=== PATIENT | female | born 1955 | race Caucasian/White ===

== ENCOUNTER → 2023-07-21 08:42 | Outpatient (REF) | payer OTHER, SELFPAY ==
[2023-07-21 09:32] LABS: % Basophils 0.6 % (0-2); % Eosinophils 2.7 % (0-6); % Immature Granulocytes 0.6 % (0-0.5); % Lymphocytes 18.6 % (20.5-51.1); % Monocytes 9.9 % (1.7-9.3); % Neutrophils 67.6 % (42.2-75.2); Absolute Eosinophils 0.1 10^3/uL (0-0.7); Absolute Lymphocytes 0.6 10^3/uL (1.2-3.4); Absolute Monocytes 0.3 10^3/uL (0.1-0.6); Absolute Neutrophils 2.3 10^3/uL (1.4-6.5); Hematocrit 38.1 % (37.0-47.0); Hemoglobin 12.7 g/dL (12.0-16.0); Mean Corp Hgb Conc. 33.3 g/dL (33.0-37.0); Mean Corpuscular Hgb 30.9 pg (27.0-31.0); Mean Corpuscular Volume 92.7 fL (81.0-99.0); Mean Platelet Volume 9.2 fL (7.4-10.4); Nucleated Red Blood Cells % 0 %; Platelet Count 119 10^3/uL (130-400); Red Blood Cell Count 4.11 10^6/uL (4.20-5.40); Red Cell Dist. Width 12.9 % (11.5-14.5); White Blood Cell Count 3.3 10^3/uL (4.8-10.8)
[2023-07-21 09:40] LABS: INR 1.04; PT 13.4 Sec (11.4-14.6)
[2023-07-21 09:55] LABS: ALT (SGPT) 48 U/L (0-35); AST (SGOT) 66 U/L (14-36); Albumin 4.1 g/dl (3.5-5.0); Alkaline Phosphatase 157 U/L (38-126); Blood Urea Nitrogen 12 mg/dl (7-17); Calcium 8.5 mg/dl (8.4-10.2); Carbon Dioxide 25 mmol/L (22-30); Chloride 106 mmol/L (98-107); GGTP 185 U/L (12-43); Glucose 90 mg/dl (70-99); Sodium 136 mmol/L (135-145); Total Bilirubin 0.9 mg/dl (0.2-1.3); Total Protein 6.6 g/dl (6.3-8.2); eGFR > 60.00
[2023-07-21 10:29] LABS: AFP Male/Tumor Marker 6.65 ng/ml; Vitamin D, 25-OH*** 53.7 ng/mL (30-80)
[2023-07-24 21:02] LABS: Alpha-Tocopherol 12.2 mg/L (5.5-18.0); Gamma-Tocopherol <0.2 mg/L (0.0-6.0); Retinyl Palmitate <0.02 mg/L (0.00-0.10); Vitamin A (Retinol) 0.42 mg/L (0.30-1.20); Xitamin A Interpretation Normal
== END ==
LOC: REG 08:42
PROVIDERS: ATTENDING PHYSICIAN Internal Medicine Rheumatology; FAMILY PHYSICIAN Family Medicine; OTHER PHYSICIAN Internal Medicine Gastroenterology; REFERRING PHYSICIAN Internal Medicine Transplant Hepatology
DX: K74.69 Other cirrhosis of liver (principal)
CPT/HCPCS: 36415; 80053; 82105; 82306; 82977; 84446; 84590; 85025; 85610

== ENCOUNTER → 2023-09-11 09:06 | Outpatient (REF) | payer OTHER, SELFPAY | LOC: REG 09:06 | PROVIDERS: ATTENDING PHYSICIAN Internal Medicine Gastroenterology | DX: R19.7 Diarrhea, unspecified (principal) | CPT/HCPCS: 87045; 87046; 87324; 87328; 87329; 87427; 87449; 89055 ==

== ENCOUNTER → 2023-10-05 09:25 | Outpatient (REF) | payer OTHER, SELFPAY ==
[2023-10-05 11:28] LABS: Blood Urea Nitrogen 12 mg/dl (7-17)
== END ==
LOC: REG 09:25
PROVIDERS: ATTENDING PHYSICIAN Internal Medicine Gastroenterology
DX: R19.7 Diarrhea, unspecified (principal)
CPT/HCPCS: 36415; 82565; 84520

== ENCOUNTER 2023-11-07 06:41 | Day surgery (SDC) | payer OTHER, SELFPAY ==
[2023-10-25 08:10] VITALS: BMI 16.3
[2023-10-25 09:09] LABS: Hematocrit 38.2 % (37.0-47.0); Hemoglobin 12.6 g/dL (12.0-16.0); Mean Corpuscular Hgb 29.5 pg (27.0-31.0); Mean Corpuscular Volume 89.5 fL (81.0-99.0); Mean Platelet Volume 9.4 fL (7.4-10.4); Platelet Count 105 10^3/uL (130-400); Red Blood Cell Count 4.27 10^6/uL (4.20-5.40); Red Cell Dist. Width 13.1 % (11.5-14.5); White Blood Cell Count 3.7 10^3/uL (4.8-10.8)
[2023-10-25 09:10] LABS: ALT (SGPT) 37 U/L (0-35); AST (SGOT) 58 U/L (14-36); Albumin 4.2 g/dl (3.5-5.0); Alkaline Phosphatase 140 U/L (38-126); Blood Urea Nitrogen 11 mg/dl (7-17); Calcium 9.1 mg/dl (8.4-10.2); Carbon Dioxide 24 mmol/L (22-30); Chloride 106 mmol/L (98-107); Estimated Creatinine Clearance 62 ml/min; Glucose 99 mg/dl (70-99); Potassium 3.9 mmol/L (3.5-5.1); Sodium 140 mmol/L (135-145); Total Bilirubin 0.7 mg/dl (0.2-1.3); Total Cholesterol 233 mg/dl (50-199); Total Protein 6.8 g/dl (6.3-8.2); Triglyceride 57 mg/dl (10-149); Very Low Density Lipoprotein 11 mg/dl (0-30); eGFR > 60.00
[2023-10-25 09:26] LABS: HDL Cholesterol 143 mg/dl; LDL Cholesterol, Calculated 79 mg/dl
[2023-10-25 10:40] LABS: Vitamin B12 863 pg/ml (239-931)
[2023-10-25 10:41] LABS: Glycohemoglobin (HgbA1c) 5.8 % (4.0-5.6)
[2023-11-07] VITALS (11 sets, daily range): BP systolic 107–122; BP diastolic 63–78; BMI 16.3
[2023-11-07] MEDS: NORMOSOL-R 1000 IV (08:52)
[2023-11-07] MEDS: HEPARIN 5000 UNITS SC (08:52)
[2023-11-07] MEDS: Pyridium 200 MG PO (08:52)
[2023-11-07] MEDS: DILAUDID 0.25 MG IV ×2 (14:13→14:29)
[2023-11-07] MEDS: ZOFRAN 4 MG IV (14:59)
== END 2023-11-07 17:58 | disposition home or self-care (01) ==
LOC: SDS 06:41
PROVIDERS: ATTENDING PHYSICIAN Obstetrics & Gynecology; FAMILY PHYSICIAN Family Medicine; OTHER PHYSICIAN Internal Medicine Gastroenterology; OTHER PHYSICIAN Internal Medicine Transplant Hepatology
DX: N81.3 Complete uterovaginal prolapse (principal)
CPT/HCPCS: 57425; 58571; 88305; 36415; 80053; 80061; 82607; 83036; 85027; 86850; 86900; 86901; 93005; C1763

== ENCOUNTER → 2023-11-28 10:17 | Outpatient (REF) | payer OTHER, SELFPAY | LOC: REG 10:17 | PROVIDERS: ATTENDING PHYSICIAN Physician Assistant; FAMILY PHYSICIAN Family Medicine; OTHER PHYSICIAN Internal Medicine Transplant Hepatology; REFERRING PHYSICIAN Internal Medicine Gastroenterology | DX: K52.3 Indeterminate colitis (principal) | CPT/HCPCS: 87324; 87449 ==

== ENCOUNTER → 2024-01-26 09:10 | Outpatient (REF) | payer OTHER, SELFPAY ==
[2024-01-26 10:21] LABS: % Basophils 0.6 % (0-2); % Eosinophils 3.7 % (0-6); % Immature Granulocytes 0.3 % (0-0.5); % Lymphocytes 17.9 % (20.5-51.1); % Monocytes 9.1 % (1.7-9.3); % Neutrophils 68.4 % (42.2-75.2); Absolute Eosinophils 0.1 10^3/uL (0-0.7); Absolute Lymphocytes 0.6 10^3/uL (1.2-3.4); Absolute Monocytes 0.3 10^3/uL (0.1-0.6); Absolute Neutrophils 2.4 10^3/uL (1.4-6.5); Hematocrit 36.9 % (37.0-47.0); Hemoglobin 12.1 g/dL (12.0-16.0); Mean Corp Hgb Conc. 32.8 g/dL (33.0-37.0); Mean Corpuscular Hgb 29.4 pg (27.0-31.0); Mean Corpuscular Volume 89.6 fL (81.0-99.0); Mean Platelet Volume 9.2 fL (7.4-10.4); Nucleated Red Blood Cells % 0 %; Platelet Count 102 10^3/uL (130-400); Red Blood Cell Count 4.12 10^6/uL (4.20-5.40); Red Cell Dist. Width 13.2 % (11.5-14.5); White Blood Cell Count 3.5 10^3/uL (4.8-10.8)
[2024-01-26 10:51] LABS: ALT (SGPT) 38 U/L (0-35); AST (SGOT) 54 U/L (14-36); Albumin 4.2 g/dl (3.5-5.0); Alkaline Phosphatase 142 U/L (38-126); Blood Urea Nitrogen 12 mg/dl (7-17); Calcium 9.1 mg/dl (8.4-10.2); Carbon Dioxide 25 mmol/L (22-30); Chloride 105 mmol/L (98-107); GGTP 187 U/L (12-43); Glucose 92 mg/dl (70-99); Potassium 4.2 mmol/L (3.5-5.1); Sodium 137 mmol/L (135-145); Total Bilirubin 0.9 mg/dl (0.2-1.3); Total Protein 6.4 g/dl (6.3-8.2); eGFR > 60.00
[2024-01-26 11:06] LABS: INR 0.98; PT 12.7 Sec (11.4-14.6)
[2024-01-26 11:22] LABS: AFP Male/Tumor Marker 6.12 ng/ml
== END ==
LOC: REG 09:10
PROVIDERS: ATTENDING PHYSICIAN Internal Medicine Rheumatology; FAMILY PHYSICIAN Family Medicine; OTHER PHYSICIAN Internal Medicine Gastroenterology; OTHER PHYSICIAN Internal Medicine Transplant Hepatology
DX: M81.0 Age-related osteoporosis without current pathological fracture (principal); Z79.899 Other long term (current) drug therapy; K74.3 Primary biliary cirrhosis
CPT/HCPCS: 36415; 80053; 82105; 82977; 85025; 85610

== ENCOUNTER → 2024-02-22 06:33 | Day surgery (SDC) | payer OTHER, SELFPAY | LOC: GI 06:33 | PROVIDERS: ATTENDING PHYSICIAN Internal Medicine Gastroenterology | DX: Z12.11 Encounter for screening for malignant neoplasm of colon (principal); Z86.010 Personal history of colon polyps; Z98.0 Intestinal bypass and anastomosis status | CPT/HCPCS: G0105 ==

== ENCOUNTER 2024-02-23 12:43 | Emergency (ER) | payer OTHER, SELFPAY ==
[2024-02-23 12:46] VITALS: BP 107/61
--- NOTE | 2024-02-23 13:19 | ED.MUSCINJ ---
HPI-Injury
General
Chief Complaint: Fall
Source: patient and spouse
Exam Limitations: none
Time Seen by Provider: 02/23/24 13:15
Nursing documentation reviewed up to this point in time: agreed with
History of Present Illness-Injury
Initial Injury comments:
68 yo female with h/o GERD, Cirrhosis, anemia, osteoporosis, presents after trip and fall on uneven pavement working in [place], FOOSH injury right wrist, landed on right knee and scraped it. Was able to ambulate afterwards. Denies hitting head.
Not anticoagulated. Denies neck or back pain.
Past History
Past History
ED Past Medical History: Other (Primary biliary cirrhosis, GERD, osteoporosis, iron deficiency anemia, vitamin B 12 deficiency)
ED Past Surgical History: Other (Robotic right colectomy by Dr. Dr. Cruz on 06/13/2019)
Social History
Tobacco: Former smoker
Personal:
Living: with family
Review of Systems
Review of Systems
Allergies reviewed?: Yes
All Other Systems: ROS reviewed and negative except as documented in HPI and ROS
Respiratory: Denies trouble breathing
Cardiac: Denies chest pain
ABD/GI: Denies abdominal pain or nausea
: Denies incontinence
Musculoskeletal: Reports other (pain left wrist, right knee); Denies neck pain or back pain
Skin: Reports other (scrape right knee)
Neurological: Reports no symptoms
Musculoskeletal Injury Exam
Musculoskeletal Injury Exam
Right Knee:
Pain with Movement?: Mild
Tender to palpation?: Mild
Soft tissue swelling?: Mild
Contusion?: Mild
Range of motion: Full
Distal skin color and temperature: normal-warm & good color
Normal distal neurovascular exam?: Yes
Right Wrist:
Pain with Movement?: Moderate
Tender to palpation?: Moderate
Soft tissue swelling?: Mild
External deformity and angulation?: None
Malalignment/deformity?: No
Range of motion: Limited
Distal skin color and temperature: normal-warm & good color
Capillary Refill: normal
Normal distal neurovascular exam?: Yes
Phy Exam
Physical Exam
Physical Exam:
GENERAL: No acute distress. A&Ox3.
CONSTITUTIONAL: Afebrile.
EYES: PERRL, conjunctivae normal
RESPIRATORY: Regular respirations, nonlabored, lungs clear.
CARDIOVASCULAR: Regular rate and rhythm, no murmurs, no rubs.
GI: Soft, nontender
MUSCULOSKELETAL: Moves with ease. Well perfused.
SKIN: Warm, dry, pink
PSYCH: Normal mood and affect. Well kept, interactive and appropriate
NEUROLOGIC: Awake, alert and oriented. No focal neurological deficits
Injury Course
Orders/Labs/Results
Orders:
Orders
02/23/24 12:48
CR Wrist - Right Min 3 Views Urgent
Comment:
Reason For Exam: fall, right wrist pain
Knee, Right 4 or More Views [CR Knee- Right 4 Or More View*] Urgent
Comment:
Reason For Exam: fall right knee pain
02/23/24 13:19
Volar Left-Treatment ONCE
02/23/24 13:37
Tetanus/Diphth/Acelpertussis [Adacel] 0.5 ml IM .ONCE ONE
02/23/24 15:48
Sling Right-Treatment ONCE
Procedures
Splint Check
Splint checked by provider?: Yes
Circulation/Movement/Sensation post splint application: brisk cap refill and full sensation
MDM/Problems Addressed
Differential Diagnosis Includes:
mechanical fall, contusion vs fracture vs sprain knee. Fracture vs sprain right wrist.
MDM/Problems Addressed:
68 yo female with h/o GERD, Cirrhosis, anemia, osteoporosis, presents after trip and fall on uneven pavement working in [place], FOOSH injury left wrist, landed on right knee and scraped it. Was able to ambulate afterwards. Denies hitting head.
Not anticoagulated. Denies neck or back pain.
Right wrist x-ray initially read by this examiner: Nondisplaced fracture of the distal radius
X-ray left right knee initially read by this examiner: No acute abnormality noted
Pt OOB and ambulating well. Pt requests a sling, ordered
Last dT 2017 updated today.
*Critical Care Note
Total Time (30-74mins, 75-104mins- exclusive of procedures): Not Applicable
ED Attending Note
-
Portions of this chart may have been created with voice recognition software.� Occasional wrong word or��sound alike� substitutions may have occurred due to the inherent limitations of voice recognition software.
Discharge Plan
Departure
Patient Disposition: Home (Routine Discharge)
Date of Disposition: 02/23/24
Time of Disposition: 13:38
Patient with high blood pressure during this ER visit?: No
Condition: Good
Discharge Problem:
Fall from slip, trip, or stumble, Fracture of right wrist, Abrasion of right knee, Contusion
Instructions: Skin Abrasions (DC), Contusion, Wrist Fracture
Prescriptions:
No Action
cyanocobalamin (vitamin B-12) 1,000 MCG tablet
1,000 mcg PO DAILY
ursodiol 300 MG capsule
300 mg PO TID
calcium carbonate [Antacid (calcium carbonate)] 1 TABLET tablet,chewable
2,000 mg PO DAILY
omeprazole 20 MG capsule,delayed release(DR/EC)
20 mg PO DAILY
cholecalciferol (vitamin D3) 2,000 UNIT tablet
2,000 unit PO DAILY
famotidine [Pepcid] 20 mg Tablet
20 mg PO HS
Align 4 mg Capsule
4 - 8 mg PO DAILY
Prolia 60 mg/mL Syringe
60 mg SC [id number]
Patient Comments:
Last injection was in August.
Ocaliva 5 mg Tablet
5 mg PO NOON
ursodiol 300 mg Capsule
600 mg PO HS
Referrals:
Jamal Franco MD [Active] - Next open appointment
Ramy Jones MD [Family Provider] -
Activity Restrictions/Additional Instructions:
As we discussed, keep the splint on until you see the orthopedic doctor. Call his office today and make an appointment for sometime next week. Tylenol or ibuprofen as needed for pain.
Interventions
Interventions:
*Risk Screen - Suicide Last Done: 02/23/24 12:46
*General Assessment Last Done: 02/23/24 12:46
*Nursing Disposition Last Done: 02/23/24 14:38
ED-Musculoskeletal Assessment Last Done: 02/23/24 12:57
ED-Skin Assessment Last Done: 02/23/24 12:57
Discharge Date and Time
Discharge Date/Time: 02/23/24 14:38
Print Language: KYRGYZ
[2024-02-23] MEDS: ADACEL 0.5 ML IM (14:17)
== END 2024-02-23 14:38 | disposition home or self-care (01) ==
LOC: EMR 12:43
PROVIDERS: EMERGENCY PHYSICIAN Emergency Medicine; FAMILY PHYSICIAN Family Medicine
DX: S52.591A Other fractures of lower end of right radius, initial encounter for closed fracture (principal); S80.01XA Contusion of right knee, initial encounter; S80.211A Abrasion, right knee, initial encounter; W01.0XXA Fall on same level from slipping, tripping and stumbling without subsequent striking against object, initial encounter; Y92.480 Sidewalk as the place of occurrence of the external cause; Y99.0 Civilian activity done for income or pay; Z23 Encounter for immunization; K21.9 Gastro-esophageal reflux disease without esophagitis; M81.0 Age-related osteoporosis without current pathological fracture; M19.90 Unspecified osteoarthritis, unspecified site; D50.9 Iron deficiency anemia, unspecified; E53.8 Deficiency of other specified B group vitamins; K74.3 Primary biliary cirrhosis; Z87.891 Personal history of nicotine dependence; Z98.0 Intestinal bypass and anastomosis status; Z88.1 Allergy status to other antibiotic agents; Z88.8 Allergy status to other drugs, medicaments and biological substances; Z91.048 Other nonmedicinal substance allergy status
CPT/HCPCS: 99284; 90471; 29125; 73110; 73564; 90715

== ENCOUNTER 2024-02-24 10:58 | Emergency (ER) | payer OTHER, SELFPAY ==
[2024-02-24 11:00] VITALS: BP 119/71
--- NOTE | 2024-02-24 11:31 | ED.GENMED ---
History of Present Illness
General
Chief Complaint: Musculo-Skeletal Complaint
Source: patient
Exam Limitations: none
Time Seen by Provider: 02/24/24 11:21
Nursing documentation reviewed up to this point in time: agreed with
History of Present Illness
History of Present Illness:
68 yr old female presents to the ER for evaluation. Patient was seen here yesterday after fall. Patient was diagnosed with a wrist fracture/abrasion contusion to right knee however no fracture. Patient reports today however she has been unable to
walk on the right knee which the prompted her to come back to the ER. She has been taking Tylenol.
She does report she does a lot of walking at home because she has a disabled daughter. She does have a history of cirrhosis but was told she is able to take Tylenol but should avoid NSAIDs because of reflux.
Past History
Past History
ED Past Medical History: Other (Primary biliary cirrhosis, GERD, osteoporosis, iron deficiency anemia, vitamin B 12 deficiency)
ED Past Surgical History: Other (Robotic right colectomy by Dr. Dr. Cruz on 06/13/2019)
Social History
Tobacco: Former smoker
Personal:
Living: with family
Review of Systems
Review of Systems
Allergies reviewed?: Yes
All Other Systems: ROS reviewed and negative except as documented in HPI and ROS
Constitutional: Reports no symptoms
Musculoskeletal: Reports other (right knee pain )
Skin: Reports no symptoms
Neurological: Reports no symptoms
Psychiatric: Reports no symptoms
Phy Exam
General Physical Exam
General Presentation: no apparent distress
General age: appears stated age
General Skin: warm and dry
General Habitus: normal
General Mental: alert
Neurological Exam
Neurological Exam: alert
Musculoskeletal Exam
Musculoskeletal Exam: other (Right upper extremity in splint, fingers with normal cap refill normal sensation right anterior knee mildly tender to palpation pain with full flexion mildly swollen strong distal pulses)
Skin Exam
Skin Exam: normal color and warm/dry
Psychiatric Exam
Psychiatric Exam: normal mood/affect
Course
Orders/Labs/Results
Orders:
Orders
02/24/24 11:41
Knee Immobilizer Right-Treatme ONCE
Vital Signs
Initial and Last Documented VS:
Initial Vital Signs
Temp Pulse BP Pulse Ox
98.5 F 79 119/71 99
02/24/24 11:00 02/24/24 11:00 02/24/24 11:00 02/24/24 11:00
Last Documented Vital Signs
Temp Pulse BP Pulse Ox
98.5 F 79 119/71 99
02/24/24 11:00 02/24/24 11:00 02/24/24 11:00 02/24/24 11:00
MDM/Problems Addressed
MDM/Problems Addressed:
As documented patient was seen here yesterday for fall patient has a wrist fracture presents in a wrist splint but does complain of increased knee pain and was unable to bear weight on knee which the prompted her to come to the ER today. X-rays
reviewed from yesterday no obvious fracture. Will try knee immobilizer to see if this helps patient with discomfort and weightbearing.
Patient ambulatory with knee immobilizer will have patient follow-up with orthopedics for her right wrist fx and right knee sprain/strain.
*Critical Care Note
Total Time (30-74mins, 75-104mins- exclusive of procedures): Not Applicable
Data Reviewed
Review of Other/Old Records Reveals: Radiology Studies and Other (ed chart from 02/23/2024 )
ED Attending Note
-
Portions of this chart may have been created with voice recognition software.� Occasional wrong word or��sound alike� substitutions may have occurred due to the inherent limitations of voice recognition software.
Discharge Plan
Departure
Patient Disposition: Home (Routine Discharge)
Date of Disposition: 02/24/24
Time of Disposition: 12:53
Patient with high blood pressure during this ER visit?: No
Covid-19: Not Applicable
Discharge Problem:
Knee sprain
Instructions: Knee Immobilizer (DC), Knee Sprain ED
Prescriptions:
No Action
cyanocobalamin (vitamin B-12) 1,000 MCG tablet
1,000 mcg PO DAILY
ursodiol 300 MG capsule
300 mg PO TID
calcium carbonate [Antacid (calcium carbonate)] 1 TABLET tablet,chewable
2,000 mg PO DAILY
omeprazole 20 MG capsule,delayed release(DR/EC)
20 mg PO DAILY
cholecalciferol (vitamin D3) 2,000 UNIT tablet
2,000 unit PO DAILY
famotidine [Pepcid] 20 mg Tablet
20 mg PO HS
Align 4 mg Capsule
4 - 8 mg PO DAILY
Prolia 60 mg/mL Syringe
60 mg SC [id number]
Patient Comments:
Last injection was in August.
Ocaliva 5 mg Tablet
5 mg PO NOON
ursodiol 300 mg Capsule
600 mg PO HS
Referrals:
Jamal Franco MD [Active] -
Ramy Jones MD [Family Provider] -
Activity Restrictions/Additional Instructions:
Wear immobilizer for support.
As discussed continue to intermittently ice affected area. Follow-up with orthopedics as discussed and return if any worsening of symptoms
Interventions
Interventions:
*Risk Screen - Suicide Last Done: 02/24/24 10:59
*General Assessment Last Done: 02/24/24 11:04
*Neglect/Abuse Screening Last Done: 02/24/24 11:04
Discharge Date and Time
Print Language: [id number]
[2024-02-24 13:56] VITALS: BP 118/80
== END 2024-02-24 13:57 | disposition home or self-care (01) ==
LOC: EMR 10:58
PROVIDERS: EMERGENCY PHYSICIAN Emergency Medicine; FAMILY PHYSICIAN Family Medicine
DX: S93.401A Sprain of unspecified ligament of right ankle, initial encounter (principal); S80.01XA Contusion of right knee, initial encounter; W19.XXXA Unspecified fall, initial encounter; Z87.891 Personal history of nicotine dependence
CPT/HCPCS: 99283; 29505

== ENCOUNTER 2024-03-05 06:28 | Day surgery (SDC) | payer OTHER, SELFPAY ==
[2024-03-05] VITALS (9 sets, daily range): BP systolic 103–122; BP diastolic 63–75; BMI 16.4
[2024-03-05] MEDS: CELEBREX 200 MG PO (13:03)
[2024-03-05] MEDS: TYLENOL 1000 MG PO (13:03)
[2024-03-05] MEDS: NORMOSOL-R/PLASMALYTE-A 1000 IV (13:03)
[2024-03-05] MEDS: TRANSDERM-SCOP 1 PATCH TRANSDERM (13:55)
== END 2024-03-05 17:13 | disposition home or self-care (01) ==
LOC: SDS 06:28
PROVIDERS: ATTENDING PHYSICIAN Orthopaedic Surgery
PROC: 0PSH04Z Reposition Right Radius with Internal Fixation Device, Open Approach (ICD-10-PCS; 2024-03-05)
DX: S52.551A Other extraarticular fracture of lower end of right radius, initial encounter for closed fracture (principal); W18.30XA Fall on same level, unspecified, initial encounter
CPT/HCPCS: 25607; C1713

== ENCOUNTER → 2024-04-30 09:24 | Outpatient (REF) | payer OTHER, SELFPAY ==
[2024-05-03 00:04] LABS: Fat, Fecal - Neutral Normal (Normal); Fat, Fecal - Split Increased (Normal)
== END ==
LOC: RAD 09:24
PROVIDERS: ATTENDING PHYSICIAN Internal Medicine Gastroenterology; FAMILY PHYSICIAN Nurse Practitioner Family
DX: R19.7 Diarrhea, unspecified (principal)
CPT/HCPCS: 74018; 82653; 82705; 87324; 87449; 89055

== ENCOUNTER 2024-05-06 06:41 | Outpatient (RCR) | payer OTHER, SELFPAY | END 2024-05-06 23:59 | disposition home or self-care (01) | LOC: RPT 06:41 | PROVIDERS: ATTENDING PHYSICIAN Orthopaedic Surgery; FAMILY PHYSICIAN Family Medicine | DX: M17.11 Unilateral primary osteoarthritis, right knee (principal); S93.491D Sprain of other ligament of right ankle, subsequent encounter; R26.2 Difficulty in walking, not elsewhere classified; Z73.6 Limitation of activities due to disability; S93.491S Sprain of other ligament of right ankle, sequela; T14.8XXS Other injury of unspecified body region, sequela | CPT/HCPCS: 97022; 97110; 97112; 97140; 97162; 97166; 97530; 97535 ==

== ENCOUNTER 2024-05-16 11:16 | Outpatient (RCR) | payer OTHER, SELFPAY | END 2024-06-03 13:35 | disposition home or self-care (01) | LOC: RPT 11:16 | PROVIDERS: ATTENDING PHYSICIAN Orthopaedic Surgery; FAMILY PHYSICIAN Family Medicine | DX: S93.491D Sprain of other ligament of right ankle, subsequent encounter (principal); R26.2 Difficulty in walking, not elsewhere classified; M17.11 Unilateral primary osteoarthritis, right knee; Z73.6 Limitation of activities due to disability; S93.491S Sprain of other ligament of right ankle, sequela; T14.8XXS Other injury of unspecified body region, sequela | CPT/HCPCS: 97022; 97110; 97112; 97140 ==

== ENCOUNTER → 2024-05-23 10:11 | Outpatient (REF) | payer OTHER, SELFPAY | LOC: HWRAD 10:11 | PROVIDERS: ATTENDING PHYSICIAN Internal Medicine Gastroenterology; FAMILY PHYSICIAN Nurse Practitioner Family; REFERRING PHYSICIAN Internal Medicine Transplant Hepatology | DX: R93.5 Abnormal findings on diagnostic imaging of other abdominal regions, including retroperitoneum (principal) | CPT/HCPCS: 76856 ==

== ENCOUNTER → 2024-08-14 11:57 | Outpatient (REF) | payer OTHER, SELFPAY | LOC: WDC 11:57 | PROVIDERS: ATTENDING PHYSICIAN Nurse Practitioner Family | DX: Z12.31 Encounter for screening mammogram for malignant neoplasm of breast (principal) | CPT/HCPCS: 77063; 77067 ==

== ENCOUNTER → 2024-08-27 08:57 | Outpatient (REF) | payer OTHER, SELFPAY ==
[2024-08-27 11:16] LABS: % Basophils 0.9 % (0-2); % Eosinophils 2.8 % (0-6); % Immature Granulocytes 0.6 % (0-0.5); % Lymphocytes 19.3 % (20.5-51.1); % Monocytes 8.9 % (1.7-9.3); % Neutrophils 67.5 % (42.2-75.2); Absolute Eosinophils 0.1 10^3/uL (0-0.7); Absolute Lymphocytes 0.6 10^3/uL (1.2-3.4); Absolute Monocytes 0.3 10^3/uL (0.1-0.6); Absolute Neutrophils 2.2 10^3/uL (1.4-6.5); Hematocrit 38.9 % (37.0-47.0); Hemoglobin 12.6 g/dL (12.0-16.0); Mean Corp Hgb Conc. 32.4 g/dL (33.0-37.0); Mean Corpuscular Hgb 30.1 pg (27.0-31.0); Mean Corpuscular Volume 93.1 fL (81.0-99.0); Mean Platelet Volume 9.7 fL (7.4-10.4); Nucleated Red Blood Cells % 0 %; Platelet Count 98 10^3/uL (130-400); Red Blood Cell Count 4.18 10^6/uL (4.20-5.40); Red Cell Dist. Width 13.2 % (11.5-14.5); White Blood Cell Count 3.3 10^3/uL (4.8-10.8)
[2024-08-27 11:18] LABS: INR 0.93; PT 12.7 Sec (11.4-14.6)
[2024-08-27 11:54] LABS: ALT (SGPT) 39 U/L (0-35); AST (SGOT) 55 U/L (14-36); Albumin 4.4 g/dl (3.5-5.0); Alkaline Phosphatase 149 U/L (38-126); Blood Urea Nitrogen 12 mg/dl (7-17); Calcium 9.1 mg/dl (8.4-10.2); Carbon Dioxide 23 mmol/L (22-30); Chloride 104 mmol/L (98-107); Glucose 84 mg/dl (70-99); Sodium 137 mmol/L (135-145); Total Bilirubin 0.9 mg/dl (0.2-1.3); Total Protein 6.8 g/dl (6.3-8.2); eGFR > 60.00
[2024-08-27 12:02] LABS: Vitamin D, 25-OH*** 27.3 ng/mL (30-80)
[2024-08-27 12:12] LABS: GGTP 181 U/L (12-43)
== END ==
LOC: REG 08:57
PROVIDERS: ATTENDING PHYSICIAN Internal Medicine Transplant Hepatology; FAMILY PHYSICIAN Nurse Practitioner Family; OTHER PHYSICIAN Internal Medicine Gastroenterology; OTHER PHYSICIAN Internal Medicine Rheumatology
DX: K74.3 Primary biliary cirrhosis (principal); E55.9 Vitamin D deficiency, unspecified; M81.0 Age-related osteoporosis without current pathological fracture; Z79.899 Other long term (current) drug therapy
CPT/HCPCS: 36415; 80053; 82105; 82306; 82977; 85025; 85610

== ENCOUNTER → 2024-11-27 06:28 | Day surgery (SDC) | payer OTHER, SELFPAY | LOC: GI 06:28 | PROVIDERS: ATTENDING PHYSICIAN Internal Medicine Gastroenterology | DX: K29.50 Unspecified chronic gastritis without bleeding (principal); K22.89 Other specified disease of esophagus; K44.9 Diaphragmatic hernia without obstruction or gangrene; K31.7 Polyp of stomach and duodenum; K31.89 Other diseases of stomach and duodenum; K74.60 Unspecified cirrhosis of liver | CPT/HCPCS: 43239; 88305; 88342 ==

== ENCOUNTER → 2024-12-05 08:40 | Outpatient (REF) | payer OTHER, SELFPAY | LOC: RAD 08:40 | PROVIDERS: ATTENDING PHYSICIAN Internal Medicine Gastroenterology; FAMILY PHYSICIAN Nurse Practitioner Family | DX: R19.7 Diarrhea, unspecified (principal) | CPT/HCPCS: 74018 ==

== ENCOUNTER → 2025-02-19 10:17 | Outpatient (REF) | payer OTHER, SELFPAY | LOC: RAD 10:17 | PROVIDERS: ATTENDING PHYSICIAN Student in an Organized Health Care Education/Training Program; FAMILY PHYSICIAN Nurse Practitioner Family; OTHER PHYSICIAN Student in an Organized Health Care Education/Training Program; REFERRING PHYSICIAN Internal Medicine Gastroenterology | DX: M81.0 Age-related osteoporosis without current pathological fracture (principal); K74.69 Other cirrhosis of liver; M15.9 Polyosteoarthritis, unspecified; M18.11 Unilateral primary osteoarthritis of first carpometacarpal joint, right hand; M40.209 Unspecified kyphosis, site unspecified; S62.109 Fracture of unspecified carpal bone, unspecified wrist; Z79.899 Other long term (current) drug therapy | CPT/HCPCS: 77080 ==

== ENCOUNTER → 2025-03-08 07:16 | Outpatient (REF) | payer OTHER, SELFPAY ==
[2025-03-08 08:09] LABS: Hematocrit 38.3 % (37.0-47.0); Hemoglobin 12.5 g/dL (12.0-16.0); Mean Corp Hgb Conc. 32.6 g/dL (33.0-37.0); Mean Corpuscular Volume 92.3 fL (81.0-99.0); Nucleated Red Blood Cells % 0 %; Platelet Count 109 10^3/uL (130-400); Red Cell Dist. Width 12.8 % (11.5-14.5)
[2025-03-08 08:20] LABS: INR 0.90; PT 12.4 Sec (11.4-14.6)
[2025-03-08 08:39] LABS: ALT (SGPT) 56 U/L (0-35); AST (SGOT) 72 U/L (14-36); Albumin 4.3 g/dl (3.5-5.0); Alkaline Phosphatase 177 U/L (38-126); Blood Urea Nitrogen 14 mg/dl (7-17); Calcium 9.3 mg/dl (8.4-10.2); Carbon Dioxide 26 mmol/L (22-30); Chloride 106 mmol/L (98-107); GGTP 285 U/L (12-43); Glucose 90 mg/dl (70-99); Potassium 4.2 mmol/L (3.5-5.1); Sodium 137 mmol/L (135-145); Total Protein 7.0 g/dl (6.3-8.2); Very Low Density Lipoprotein 13 mg/dl (0-30); eGFR > 60.00
[2025-03-08 08:45] LABS: Vitamin D, 25-OH*** 39.8 ng/mL (30-80)
[2025-03-08 08:49] LABS: HDL Cholesterol 165 mg/dl; LDL Cholesterol, Calculated 52 mg/dl
[2025-03-08 09:29] LABS: Glycohemoglobin (HgbA1c) 5.2 % (4.0-5.6)
[2025-03-10 19:25] LABS: AFP Male/Tumor Marker 6.65 ng/ml
== END ==
LOC: REG 07:16
PROVIDERS: ATTENDING PHYSICIAN Student in an Organized Health Care Education/Training Program; FAMILY PHYSICIAN Nurse Practitioner Family; OTHER PHYSICIAN Internal Medicine Gastroenterology; REFERRING PHYSICIAN Internal Medicine Transplant Hepatology
DX: R73.03 Prediabetes (principal); Z13.220 Encounter for screening for lipoid disorders; K74.69 Other cirrhosis of liver; M15.9 Polyosteoarthritis, unspecified; M18.11 Unilateral primary osteoarthritis of first carpometacarpal joint, right hand; M40.209 Unspecified kyphosis, site unspecified; M81.0 Age-related osteoporosis without current pathological fracture; Z79.899 Other long term (current) drug therapy; K74.3 Primary biliary cirrhosis
CPT/HCPCS: 36415; 80053; 80061; 82105; 82306; 82977; 83036; 84446; 84590; 85025; 85610